=== PATIENT | female | born 1985 | race Caucasian/White ===

== ENCOUNTER 2019-09-15 17:35 | Emergency (ER) | payer MEDICAID ==
[~2019-09-15] VITALS: Ht 152.4 cm; Wt 46.7 kg
[2019-09-15 18:02] VITALS: BP_SYST 102
--- NOTE | 2019-09-15 18:10 | NUR ---
Patient to ER bed 1 to gown for evaluation. Side rails up.
--- NOTE | 2019-09-15 18:15 | NUR ---
PT C/O ABD PAIN.PT H/O DM,RENAL DISEASE.
--- NOTE | 2019-09-15 18:20 | NUR ---
ER Ronald Peterson at bedside examining patient.
--- NOTE | 2019-09-15 18:35 | NUR ---
# 22 gauge angiocath placed to lh. Use of asceptic technique. Opsite placed over site. Blood return noted. Blood for lab drawn from site. Flushed with 10 cc of normal saline. No evidence of infiltration noted. Patient tolerated well.
[2019-09-15 19:13] LABS: BASOPHILS # (AUTO) 0.1 K/uL (0.0-0.2); BASOPHILS % (AUTO) 1.1 % (0.0-2.0); EOSINOPHILS # (AUTO) 0.2 K/uL (0.0-0.4); EOSINOPHILS % (AUTO) 2.7 % (0.0-4.0); HEMATOCRIT 40.7 % (36-48); HEMOGLOBIN 13.3 g/dL (12.0-16.0); LYMPHOCYTES # (AUTO) 2.5 K/uL (1.0-5.5); LYMPHOCYTES % (AUTO) 38.8 % (20.5-51.5); MEAN CORPUSCULAR HEMOGLOBIN 30 pg (27-31); MEAN CORPUSCULAR HGB CONC 33 % (32-36); MEAN CORPUSCULAR VOLUME 91 fL (79.0-98.0); MONOCYTES # (AUTO) 0.4 K/uL (0.0-1.0); MONOCYTES % (AUTO) 6.3 % (1.7-9.3); NEUTROPHILS # (AUTO) 3.2 K/uL (1.8-7.7); NEUTROPHILS % (AUTO) 51.1 % (40.0-70.0); PLATELET COUNT (AUTO) 214 K/uL (130-430); RED BLOOD CELL COUNT(AUTO) 4.48 MIL/uL (4.2-6.2); RED CELL DISTRIBUTION WIDTH 13.6 % (9.0-15.0); WHITE BLOOD COUNT (AUTO) 6.3 K/uL (4.8-10.8)
[2019-09-15 19:36] LABS: ALBUMIN 3.6 g/dL (3.4-4.8); CALCIUM 8.8 mg/dL (8.4-11.0); CREATININE 2.1 mg/dL (0.55-1.30); TOTAL BILIRUBIN 0.6 mg/dL (0.0-1.0)
--- NOTE | 2019-09-15 20:00 | NUR ---
VSS no s/s of acute distress. Resting on gurney rails up
[2019-09-15 20:15] LABS: PROTHROMBIN TIME 9.9 SECS (9.5-12.5)
[2019-09-15] MEDS ORDERED: NACL 0.9% 1,000 ML IV ONE (22:15)
[2019-09-15] MEDS ORDERED: MORPHINE 4 MG/ML INJ. SYRINGE IVP ONE (22:15)
--- NOTE | 2019-09-15 22:17 | NUR ---
Pt taken to Radiology in stable condition
--- NOTE | 2019-09-15 22:28 | NUR ---
Pt back from Radiology, well tolerated
--- NOTE | 2019-09-15 22:42 | NUR ---
Attempting to establish new IV site. Pt in stable condition
[2019-09-15] MEDS ORDERED: DIPHENHYDRAMINE INJ 50 MG/ML VIAL IVP ONE (23:30)
[2019-09-15 23:55] VITALS: BP_SYST 102
--- NOTE | 2019-09-15 23:55 | NUR ---
Patient given written and verbal discharge instructions and verbalizes understanding. ER MD discussed with patient the results and treatment provided. Patient in stable condition. ID arm band removed. IV catheter removed intact and dressing applied, no active bleeding. Rx of Cranks, Flomax, Zofran given. Patient educated on pain management and to follow up with PMD. Pain Scale 0/10 Opportunity for questions provided and answered. Medication side effect fact sheet provided.
== END 2019-09-15 23:55 | disposition home or self-care (01) ==
LOC: SED 17:35
DX: N20.0 Calculus of kidney (principal); E10.9 Type 1 diabetes mellitus without complications
CPT/HCPCS: 36415; 71045; 74176; 80053; 81002; 81025; 82550; 82962; 83880; 84484; 85025; 85610; 85730; 93005; 96361; 96374; 96375; 99284; J1200; J2270; J7030